=== PATIENT | male | born 1955 | race Caucasian/White ===

== ENCOUNTER 2016-03-11 08:00 | Outpatient (CLI) | payer MEDICAID | END 2016-03-11 08:01 | disposition home or self-care (01) | DX: I48.91 Unspecified atrial fibrillation (principal) ==

== ENCOUNTER 2016-04-02 20:07 | Outpatient (CLI) | payer MEDICAID | END 2016-04-02 20:08 | disposition home or self-care (01) | DX: I48.91 Unspecified atrial fibrillation (principal) ==

== ENCOUNTER 2016-04-23 14:25 | Outpatient (CLI) | payer MEDICAID | END 2016-04-23 14:26 | disposition home or self-care (01) | DX: I48.91 Unspecified atrial fibrillation (principal) ==

== ENCOUNTER 2016-05-06 17:03 | Outpatient (CLI) | payer MEDICAID | END 2016-05-06 17:04 | disposition home or self-care (01) | DX: I48.91 Unspecified atrial fibrillation (principal) ==

== ENCOUNTER 2016-05-26 11:19 | Outpatient (CLI) | payer MEDICAID | END 2016-05-26 11:20 | disposition home or self-care (01) | DX: I48.91 Unspecified atrial fibrillation (principal) ==

== ENCOUNTER 2016-06-19 13:57 | Outpatient (CLI) | payer MEDICAID | END 2016-06-19 23:59 | DX: I48.91 Unspecified atrial fibrillation (principal) ==

== ENCOUNTER 2016-07-01 16:12 | Outpatient (CLI) | payer MEDICAID | END 2016-07-01 16:13 | disposition EMS.NT | DX: Z03.89 Encounter for observation for other suspected diseases and conditions ruled out (principal); W18.30XA Fall on same level, unspecified, initial encounter; Y92.008 Other place in unspecified non-institutional (private) residence as the place of occurrence of the external cause ==

== ENCOUNTER 2016-07-15 11:30 | Outpatient (CLI) | payer MEDICAID | END 2016-07-15 23:59 | disposition home or self-care (01) | DX: I48.91 Unspecified atrial fibrillation (principal) ==

== ENCOUNTER 2016-08-01 13:04 | Outpatient (CLI) | payer MEDICAID ==
[2016-08-01 18:59] LABS: BASOPHILS % (AUTO) 0.4 %; EOSINOPHILS # (AUTO) 0.1 10^3/uL (0.0-0.7); EOSINOPHILS % (AUTO) 0.7 %; HCT - HEMATOCRIT 42.4 % (42.0-52.0); HGB - HEMOGLOBIN 13.8 g/dL (14.0-18.0); LYMPHOCYTES # (AUTO) 1.4 10^3/uL (1.5-3.5); LYMPHOCYTES % (AUTO) 18.3 %; MEAN CORPUSCULAR HEMOGLOBIN 28.4 pg (27.0-31.0); MEAN CORPUSCULAR HGB CONC 32.6 g/dL (32.0-36.0); MEAN CORPUSCULAR VOLUME 86.9 fL (80.0-94.0); MEAN PLATELET VOLUME 8.8 fL (7.4-11.4); MONOCYTES # (AUTO) 0.7 10^3/uL (0.0-1.0); MONOCYTES % (AUTO) 9.2 %; NEUTROPHILS # (AUTO) 5.4 10^3/uL (1.5-6.6); NEUTROPHILS % (AUTO) 71.4 %; NUCLEATED RED BLOOD CELLS AUTO 0.1 /100WBC; RED BLOOD COUNT 4.87 10^6/uL (4.70-6.10); RED CELL DISTRIBUTION WIDTH 15.7 % (12.0-15.0); UNCORRECTED WHITE BLOOD COUNT 7.5 x10^3/uL; WHITE BLOOD COUNT 7.5 x10^3/uL (4.8-10.8)
[2016-08-01 19:52] LABS: ALBUMIN/GLOBULIN RATIO 1.3 (1.0-2.2); BILIRUBIN,TOTAL 0.5 mg/dL (0.2-1.0); BUN - BLOOD UREA NITROGEN 14 mg/dL (6-20); CALCIUM 8.6 mg/dL (8.5-10.3); CARBON DIOXIDE - CO2 21 mmol/L (21-32); CHLORIDE 102 mmol/L (101-111); CHOL/HDL RATIO 2.5 (<5.0); CHOLESTEROL 129 mg/dL; CREATININE 1.1 mg/dL (0.6-1.2); GFR - MDRD 69 (>89); GLUCOSE 250 mg/dL (70-100); HDL CHOLESTEROL 51 mg/dL; POTASSIUM 4.3 mmol/L (3.5-5.0); SODIUM 134 mmol/L (135-145); TOTAL PROTEIN 6.9 g/dL (6.7-8.2); TRIGLYCERIDES 136 mg/dL; VLDL CHOLESTEROL 27 mg/dL
[2016-08-01 20:31] LABS: HEMOGLOBIN A1C 0.91 g/dL
== END 2016-08-01 13:05 | disposition home or self-care (01) ==
LOC: LAB.N 13:04
PROVIDERS: ATTEND Nurse Practitioner Gerontology
DX: E11.9 Type 2 diabetes mellitus without complications (principal); I48.91 Unspecified atrial fibrillation
CPT/HCPCS: 36415; 80053; 80061; 82043; 83036; 85025; 85610

== ENCOUNTER 2016-09-04 08:00 | Outpatient (CLI) | payer MEDICAID | END 2016-09-04 08:01 | LOC: LAB.N 08:00 | PROVIDERS: ATTEND Nurse Practitioner Gerontology | DX: I48.91 Unspecified atrial fibrillation (principal) | CPT/HCPCS: 85610 ==

== ENCOUNTER 2016-09-10 14:07 | Outpatient (CLI) | payer MEDICAID | END 2016-09-10 14:08 | LOC: LAB.N 14:07 | PROVIDERS: ATTEND Nurse Practitioner Gerontology | DX: I48.91 Unspecified atrial fibrillation (principal) | CPT/HCPCS: 85610 ==

== ENCOUNTER 2016-09-16 13:35 | Outpatient (CLI) | payer MEDICAID | END 2016-09-16 23:59 | disposition home or self-care (01) | LOC: LAB.N 13:35 | PROVIDERS: ATTEND Nurse Practitioner Gerontology | DX: I48.91 Unspecified atrial fibrillation (principal) | CPT/HCPCS: 85610 ==

== ENCOUNTER 2016-09-24 15:04 | Outpatient (CLI) | payer MEDICAID | END 2016-09-24 15:05 | disposition home or self-care (01) | LOC: LAB.N 15:04 | PROVIDERS: ATTEND Nurse Practitioner Gerontology | DX: I48.91 Unspecified atrial fibrillation (principal) | CPT/HCPCS: 85610 ==

== ENCOUNTER 2016-10-03 14:11 | Outpatient (CLI) | payer MEDICAID | END 2016-10-03 14:12 | disposition home or self-care (01) | LOC: LAB.N 14:11 | PROVIDERS: ATTEND Nurse Practitioner Gerontology | DX: I48.91 Unspecified atrial fibrillation (principal) | CPT/HCPCS: 85610 ==

== ENCOUNTER 2016-10-13 13:23 | Outpatient (CLI) | payer MEDICAID | END 2016-10-13 13:24 | disposition home or self-care (01) | LOC: LAB.N 13:23 | PROVIDERS: ATTEND Nurse Practitioner Gerontology | DX: I48.91 Unspecified atrial fibrillation (principal) | CPT/HCPCS: 85610 ==

== ENCOUNTER 2016-10-29 14:00 | Outpatient (CLI) | payer MEDICAID | END 2016-10-29 14:01 | disposition home or self-care (01) | LOC: LAB.N 14:00 | PROVIDERS: ATTEND Nurse Practitioner Gerontology | DX: I48.91 Unspecified atrial fibrillation (principal) | CPT/HCPCS: 85610 ==

== ENCOUNTER 2016-12-04 13:12 | Outpatient (CLI) | payer MEDICAID | END 2016-12-04 13:13 | disposition home or self-care (01) | LOC: LAB.N 13:12 | PROVIDERS: ATTEND Nurse Practitioner Gerontology | DX: I48.91 Unspecified atrial fibrillation (principal) ==

== ENCOUNTER 2016-12-24 03:47 | Emergency (ER) | payer MEDICAID ==
[2016-12-24 04:29] VITALS: BP 119/73
--- NOTE | 2016-12-24 04:30 | ED Physician Documentation ---
PD HPI HEENT - Stated complaint Stated Complaint: BLEEDING POST TOOTH EXTRACTION - Chief complaint Chief Complaint: Heent - History obtained from History obtained from: Patient - History of Present Illness Timing - onset: How many days ago (8) Timing - details: Gradual onset, Still present Location: Mouth Similar symptoms before: Has not had sx before Recently seen: Clinic, Surgery - Additional information Additional information: Patient is a 61 year old male on coumadin for A fib who is presenting for oral bleeding after having a tooth extraction yesterday. Patient states that the bleeding stopped for a while, but it then started up again tonight. Patient states that it has been persistent since this afternoon. Patient denies any dizziness or syncope. Review of Systems Constitutional: denies: Fever, Chills Eyes: denies: Decreased vision, Photophobia Ears: denies: Ear pain, Drainage/discharge Nose: denies: Congestion, Epistaxis Throat: reports: Dental pain / toothache, Oral lesions / sores Cardiac: reports: Reviewed and negative Respiratory: denies: Cough GI: denies: Nausea, Vomiting : reports: Reviewed and negative Skin: reports: Reviewed and negative Musculoskeletal: reports: Reviewed and negative Neurologic: denies: Near syncope, Syncope Immunocompromised: denies: Immunocompromised PD PAST MEDICAL HISTORY - Past Medical History Past Medical History: Yes Cardiovascular: Hypertension, Atrial fibrillation Respiratory: Sleep apnea Neuro: None Endocrine/Autoimmune: Type 2 diabetes GI: Hiatal hernia : None HEENT: Chronic vision loss Psych: Depression Musculoskeletal: Chronic back pain Derm: Other drug resistant infections - Past Surgical History Past Surgical History: Yes General: Gastric surgery, Colonoscopy Ortho: Amputation, Other HEENT: Tonsil/Adenoidectomy, Other - Present Medications Home Medications: Ambulatory Orders Medication Instructions Recorded Confirmed Gabapentin [Neurontin] 300 mg PO TID 09/16/13 12/24/16 Hydrochlorothiazide 25 mg PO DAILY 09/16/13 12/24/16 Warfarin Sodium [Coumadin] 7.5 mg PO DAILY 09/16/13 12/24/16 metFORMIN [Glucophage] 500 mg PO BID 09/16/13 12/24/16 Bupropion HCl [Wellbutrin Xl] 300 mg PO DAILY 01/05/14 12/24/16 Cholecalciferol (Vitamin D3) 4,000 unit PO DAILY 01/05/14 12/24/16 [Vitamin D-3] Escitalopram Oxalate [Lexapro] 20 mg PO DAILY 01/05/14 12/24/16 Fluticasone [Flonase] 1 sprays TO BID PRN 01/05/14 12/24/16 Zolpidem [Ambien] 10 mg PO HS 01/05/14 12/24/16 - Allergies Allergies/Adverse Reactions: Allergies Allergy/AdvReac Type Severity Reaction Status Date / Time vancomycin Allergy Rash Verified 12/24/16 04:01 - Social History Does the pt smoke?: No Smoking Status: Never smoker Does the pt drink ETOH?: No Does the pt have substance abuse?: No - Immunizations Immunizations are current?: No Immunizations: TDAP >10years/unknown - POLST Patient has POLST: No PD ED PE NORMAL - Vitals Vital signs reviewed: Yes - General General: Alert and oriented X 3, No acute distress - HEENT HEENT: Atraumatic, PERRL - Neck Neck: Supple, no meningeal sign - Cardiac Cardiac: RRR, No murmur - Respiratory Respiratory: No respiratory distress - Derm Derm: Normal color, Warm and dry, No rash - Extremities Extremities: No deformity, Normal ROM s pain, No edema - Neuro Neuro: Alert and oriented X 3, No motor deficit, No sensory deficit - Psych Psych: Normal mood PD ED PE EXPANDED - HEENT HEENT: Other (bleeding ) Results - Vitals Vitals: Vital Signs - 24 hr 12/24/16 12/24/16 03:55 04:28 Temperature 36 C L Heart Rate 78 80 Respiratory 17 18 Rate Blood Pressure 149/118 H 119/73 O2 Saturation 99 97 Oxygen O2 Source [With Activity] Room air O2 Source [Without Activity] Room air O2 Source Room air PD MEDICAL DECISION MAKING - ED course Complexity details: reviewed old records, reviewed results, re-evaluated patient , considered differential, d/w patient ED course: Patient was seen and examined at bedside. Patient had an oozing wound. the wound was packed with surgicel and patient was given pressure gauze. the bleeding stopped to a trickle and patient was given more supplies for home. patient required no further work up and was stable for discharge with outpatient follow up. Departure - Departure Disposition: Home, Self Care Clinical Impression: Surgical wound hemorrhage after dental procedure Condition: Good Instructions: Coumadin Follow-Up: Karie Brody ARNP [Primary Care Provider] - Comments: Your symptoms today are secondary to your coumadin usage. You should apply the coagulation pads in the socket if it continues to bleed and apply pressure. if the bleeding continues for more than a day you should follow up with your dentist. You should return to the emergency department for dizziness, passing out, new worsening or uncontrollable symptoms.
== END 2016-12-24 04:36 | disposition home or self-care (01) ==
LOC: ED 03:47
DX: L76.22 Postprocedural hemorrhage of skin and subcutaneous tissue following other procedure (principal); K08.409 Partial loss of teeth, unspecified cause, unspecified class; I48.91 Unspecified atrial fibrillation; Z79.01 Long term (current) use of anticoagulants; I10 Essential (primary) hypertension; Z79.84 Long term (current) use of oral hypoglycemic drugs; Z98.84 Bariatric surgery status
CPT/HCPCS: 99282; 99283

== ENCOUNTER 2017-02-02 08:00 | Outpatient (CLI) | payer MEDICAID | END 2017-02-02 08:01 | disposition home or self-care (01) | LOC: LAB.N 08:00 | PROVIDERS: ATTEND Nurse Practitioner Gerontology | DX: I48.91 Unspecified atrial fibrillation (principal) | CPT/HCPCS: 85610 ==

== ENCOUNTER 2017-03-06 14:36 | Outpatient (CLI) | payer MEDICAID | END 2017-03-06 14:37 | disposition home or self-care (01) | LOC: LAB.N 14:36 | PROVIDERS: ATTEND Nurse Practitioner Gerontology | DX: I48.91 Unspecified atrial fibrillation (principal) | CPT/HCPCS: 85610 ==

== ENCOUNTER 2017-04-09 08:00 | Outpatient (CLI) | payer MEDICAID | END 2017-04-09 08:01 | disposition home or self-care (01) | LOC: LAB.N 08:00 | PROVIDERS: ATTEND Nurse Practitioner Gerontology | DX: I48.91 Unspecified atrial fibrillation (principal) | CPT/HCPCS: 85610 ==

== ENCOUNTER 2017-04-22 13:23 | Outpatient (CLI) | payer MEDICAID | END 2017-04-22 13:24 | disposition home or self-care (01) | LOC: LAB.N 13:23 | PROVIDERS: ATTEND Nurse Practitioner Gerontology | DX: I48.91 Unspecified atrial fibrillation (principal) | CPT/HCPCS: 85610 ==

== ENCOUNTER 2017-04-27 02:26 | Outpatient (CLI) | payer MEDICAID | END 2017-04-27 02:27 | disposition home or self-care (01) | LOC: LAB.N 02:26 | PROVIDERS: ATTEND Nurse Practitioner Gerontology | DX: I48.91 Unspecified atrial fibrillation (principal) | CPT/HCPCS: 85610 ==

== ENCOUNTER 2017-05-04 14:40 | Outpatient (CLI) | payer MEDICAID | END 2017-05-04 14:41 | disposition home or self-care (01) | LOC: LAB.N 14:40 | PROVIDERS: ATTEND Nurse Practitioner Gerontology | DX: I48.91 Unspecified atrial fibrillation (principal) | CPT/HCPCS: 85610 ==

== ENCOUNTER 2017-06-01 23:38 | Outpatient (CLI) | payer MEDICAID | END 2017-06-01 23:39 | disposition home or self-care (01) | LOC: LAB.N 23:38 | PROVIDERS: ATTEND Nurse Practitioner Gerontology | DX: I48.91 Unspecified atrial fibrillation (principal) | CPT/HCPCS: 85610 ==

== ENCOUNTER 2017-06-08 08:00 | Outpatient (CLI) | payer MEDICAID | END 2017-06-08 08:01 | disposition home or self-care (01) | LOC: LAB.N 08:00 | PROVIDERS: ATTEND Nurse Practitioner Gerontology | DX: I48.91 Unspecified atrial fibrillation (principal) | CPT/HCPCS: 85610 ==

== ENCOUNTER 2017-06-26 13:29 | Outpatient (CLI) | payer MEDICAID | END 2017-06-26 13:30 | disposition home or self-care (01) | LOC: LAB.N 13:29 | PROVIDERS: ATTEND Nurse Practitioner Gerontology | DX: I48.91 Unspecified atrial fibrillation (principal) | CPT/HCPCS: 85610 ==

== ENCOUNTER 2017-07-09 10:16 | Outpatient (CLI) | payer MEDICAID ==
[2017-07-09 13:01] LABS: BASOPHILS % (AUTO) 0.5 %; EOSINOPHILS # (AUTO) 0.2 10^3/uL (0.0-0.7); EOSINOPHILS % (AUTO) 2.3 %; HGB - HEMOGLOBIN 13.3 g/dL (14.0-18.0); LYMPHOCYTES # (AUTO) 1.9 10^3/uL (1.5-3.5); LYMPHOCYTES % (AUTO) 19.3 %; MEAN CORPUSCULAR HEMOGLOBIN 27.1 pg (27.0-31.0); MEAN CORPUSCULAR HGB CONC 32.5 g/dL (32.0-36.0); MEAN CORPUSCULAR VOLUME 83.4 fL (80.0-94.0); MEAN PLATELET VOLUME 8.7 fL (7.4-11.4); MONOCYTES # (AUTO) 0.7 10^3/uL (0.0-1.0); MONOCYTES % (AUTO) 7.3 %; NEUTROPHILS # (AUTO) 6.8 10^3/uL (1.5-6.6); NEUTROPHILS % (AUTO) 70.6 %; PLT - PLATELET COUNT 221 10^3/uL (130-450); RED BLOOD COUNT 4.91 10^6/uL (4.70-6.10); RED CELL DISTRIBUTION WIDTH 15.2 % (12.0-15.0); WHITE BLOOD COUNT 9.6 x10^3/uL (4.8-10.8)
[2017-07-09 13:32] LABS: ALBUMIN 3.6 g/dL (3.2-5.5); ALBUMIN/GLOBULIN RATIO 1.1 (1.0-2.2); ALKALINE PHOSPHATASE 58 IU/L (42-121); ALT ALANINE AMINOTRANSFERASE 25 IU/L (10-60); AST ASPARTATE AMINOTRANSFERASE 33 IU/L (10-42); BILIRUBIN,TOTAL 0.8 mg/dL (0.2-1.0); BUN - BLOOD UREA NITROGEN 16 mg/dL (6-20); CALCIUM 8.6 mg/dL (8.5-10.3); CARBON DIOXIDE - CO2 21 mmol/L (21-32); CHLORIDE 100 mmol/L (101-111); CHOL/HDL RATIO 2.5 (<5.0); CHOLESTEROL 141 mg/dL; GFR - MDRD 76 (>89); GLUCOSE 219 mg/dL (70-100); HDL CHOLESTEROL 56 mg/dL; LDL CHOLESTEROL,CALCULATED 57 mg/dL; SODIUM 134 mmol/L (135-145); TOTAL PROTEIN 6.8 g/dL (6.7-8.2); VLDL CHOLESTEROL 28 mg/dL
== END 2017-07-09 10:17 | disposition home or self-care (01) ==
LOC: LAB.N 10:16
PROVIDERS: ATTEND Nurse Practitioner Gerontology
DX: Z13.9 Encounter for screening, unspecified (principal); I48.91 Unspecified atrial fibrillation
CPT/HCPCS: 36415; 80050; 80061; 83721; 85610

== ENCOUNTER 2017-07-23 08:00 | Outpatient (CLI) | payer MEDICAID | END 2017-07-23 08:01 | disposition home or self-care (01) | LOC: LAB.N 08:00 | PROVIDERS: ATTEND Nurse Practitioner Gerontology | DX: I48.91 Unspecified atrial fibrillation (principal) | CPT/HCPCS: 85610 ==

== ENCOUNTER 2017-07-31 13:03 | Outpatient (CLI) | payer MEDICAID | END 2017-07-31 13:04 | disposition home or self-care (01) | LOC: LAB.N 13:03 | PROVIDERS: ATTEND Nurse Practitioner Gerontology | DX: I48.91 Unspecified atrial fibrillation (principal) | CPT/HCPCS: 85610 ==

== ENCOUNTER 2017-08-18 11:24 | Outpatient (CLI) | payer MEDICAID | END 2017-08-18 11:25 | disposition home or self-care (01) | LOC: LAB.N 11:24 | PROVIDERS: ATTEND Nurse Practitioner Gerontology | DX: I48.91 Unspecified atrial fibrillation (principal) | CPT/HCPCS: 85610 ==

== ENCOUNTER 2017-08-27 13:11 | Outpatient (CLI) | payer MEDICAID | END 2017-08-27 13:12 | disposition home or self-care (01) | LOC: LAB.N 13:11 | PROVIDERS: ATTEND Nurse Practitioner Gerontology | DX: I48.91 Unspecified atrial fibrillation (principal) | CPT/HCPCS: 85610 ==

== ENCOUNTER 2017-09-09 13:45 | Outpatient (CLI) | payer MEDICAID | END 2017-09-09 13:46 | disposition home or self-care (01) | LOC: LAB.N 13:45 | PROVIDERS: ATTEND Nurse Practitioner Gerontology | DX: I48.91 Unspecified atrial fibrillation (principal) | CPT/HCPCS: 85610 ==

== ENCOUNTER 2017-09-23 20:23 | Outpatient (CLI) | payer MEDICAID | END 2017-09-23 20:24 | disposition home or self-care (01) | LOC: LAB.N 20:23 | PROVIDERS: ATTEND Nurse Practitioner Gerontology | DX: I48.91 Unspecified atrial fibrillation (principal) | CPT/HCPCS: 85610 ==

== ENCOUNTER 2017-10-27 10:35 | Outpatient (CLI) | payer MEDICAID ==
[2017-10-27 12:54] LABS: HB2 TOTAL 15.4 g/dL; HEMOGLOBIN A1C 1.14 g/dL; HEMOGLOBIN A1C % 8.9 % (4.6-6.2)
[2017-10-27 12:55] LABS: CALCIUM 8.7 mg/dL (8.5-10.3); CREATININE 1.1 mg/dL (0.6-1.2)
== END 2017-10-27 10:36 | disposition home or self-care (01) ==
LOC: LAB.N 10:35
PROVIDERS: ATTEND Nurse Practitioner Gerontology
DX: I48.91 Unspecified atrial fibrillation (principal); E11.65 Type 2 diabetes mellitus with hyperglycemia; Z79.4 Long term (current) use of insulin
CPT/HCPCS: 36415; 80048; 83036; 85610

== ENCOUNTER 2017-11-27 13:30 | Outpatient (CLI) | payer MEDICAID | END 2017-11-27 13:31 | disposition home or self-care (01) | LOC: LAB.N 13:30 | PROVIDERS: ATTEND Nurse Practitioner Gerontology | DX: I48.91 Unspecified atrial fibrillation (principal) | CPT/HCPCS: 85610 ==

== ENCOUNTER 2017-12-07 13:13 | Outpatient (CLI) | payer MEDICAID | END 2017-12-07 13:14 | disposition home or self-care (01) | LOC: LAB.N 13:13 | PROVIDERS: ATTEND Nurse Practitioner Gerontology | DX: I48.91 Unspecified atrial fibrillation (principal) | CPT/HCPCS: 85610 ==

== ENCOUNTER 2017-12-15 11:54 | Outpatient (CLI) | payer MEDICAID | END 2017-12-15 11:55 | disposition home or self-care (01) | LOC: LAB.N 11:54 | PROVIDERS: ATTEND Nurse Practitioner Gerontology | DX: I48.91 Unspecified atrial fibrillation (principal) | CPT/HCPCS: 85610 ==

== ENCOUNTER 2017-12-22 13:09 | Outpatient (CLI) | payer MEDICAID | END 2017-12-22 13:10 | disposition home or self-care (01) | LOC: LAB.N 13:09 | PROVIDERS: ATTEND Nurse Practitioner Gerontology | DX: I48.91 Unspecified atrial fibrillation (principal) | CPT/HCPCS: 85610 ==

== ENCOUNTER 2017-12-31 13:15 | Outpatient (CLI) | payer MEDICAID | END 2017-12-31 13:16 | disposition home or self-care (01) | LOC: LAB.N 13:15 | PROVIDERS: ATTEND Nurse Practitioner Gerontology | DX: I48.91 Unspecified atrial fibrillation (principal) | CPT/HCPCS: 85610 ==

== ENCOUNTER → 2018-01-11 | Outpatient (CLI) | payer MEDICAID ==
[2018-01-11 18:56] LABS: INR 2.1 (0.8-1.2)
== END ==
LOC: LAB.N 14:04
PROVIDERS: ATTEND Nurse Practitioner Gerontology
DX: I48.91 Unspecified atrial fibrillation (principal)
CPT/HCPCS: 36415; 85610

== ENCOUNTER 2018-01-27 08:00 | Outpatient (CLI) | payer MEDICAID | END 2018-01-27 08:01 | disposition home or self-care (01) | LOC: LAB.N 08:00 | PROVIDERS: ATTEND Nurse Practitioner Gerontology | DX: I48.91 Unspecified atrial fibrillation (principal) | CPT/HCPCS: 85610 ==

== ENCOUNTER 2018-02-01 13:24 | Outpatient (CLI) | payer MEDICAID ==
[2018-02-01 19:42] LABS: CALCIUM 8.4 mg/dL (8.5-10.3); CREATININE 1.1 mg/dL (0.6-1.2)
[2018-02-01 20:49] LABS: HB2 TOTAL 15.2 g/dL; HEMOGLOBIN A1C 1.04 g/dL; HEMOGLOBIN A1C % 8.4 % (4.6-6.2)
== END 2018-02-01 23:59 | disposition home or self-care (01) ==
LOC: LAB.N 13:24
PROVIDERS: ATTEND Nurse Practitioner Gerontology
DX: E11.65 Type 2 diabetes mellitus with hyperglycemia (principal); Z79.4 Long term (current) use of insulin; I48.91 Unspecified atrial fibrillation
CPT/HCPCS: 36415; 80048; 83036; 85610

== ENCOUNTER 2018-02-26 13:01 | Outpatient (CLI) | payer MEDICAID | END 2018-02-26 23:59 | disposition home or self-care (01) | LOC: LAB.N 13:01 | PROVIDERS: ATTEND Nurse Practitioner Gerontology | DX: I48.91 Unspecified atrial fibrillation (principal) | CPT/HCPCS: 85610 ==

== ENCOUNTER 2018-03-31 08:00 | Outpatient (CLI) | payer MEDICAID | END 2018-03-31 23:59 | disposition home or self-care (01) | LOC: LAB.N 08:00 | PROVIDERS: ATTEND Nurse Practitioner Gerontology | DX: I48.91 Unspecified atrial fibrillation (principal) | CPT/HCPCS: 85610 ==

== ENCOUNTER 2018-04-19 08:00 | Outpatient (CLI) | payer MEDICAID | END 2018-04-19 23:59 | disposition home or self-care (01) | LOC: LAB.N 08:00 | PROVIDERS: ATTEND Nurse Practitioner Gerontology | DX: I48.91 Unspecified atrial fibrillation (principal) | CPT/HCPCS: 85610 ==

== ENCOUNTER 2018-05-03 12:55 | Outpatient (CLI) | payer MEDICAID ==
[2018-05-03 22:16] LABS: HEMOGLOBIN A1C 1.02 g/dL; HEMOGLOBIN A1C % 8.4 % (4.6-6.2)
== END 2018-05-03 23:59 | disposition home or self-care (01) ==
LOC: LAB.N 12:55
PROVIDERS: ATTEND Nurse Practitioner Gerontology
DX: E11.9 Type 2 diabetes mellitus without complications (principal)
CPT/HCPCS: 36415; 83036

== ENCOUNTER 2018-05-20 12:01 | Outpatient (CLI) | payer MEDICAID | END 2018-05-20 23:59 | disposition home or self-care (01) | LOC: LAB.N 12:01 | PROVIDERS: ATTEND Nurse Practitioner Gerontology | DX: I48.91 Unspecified atrial fibrillation (principal) | CPT/HCPCS: 85610 ==

== ENCOUNTER 2018-06-17 10:59 | Outpatient (CLI) | payer MEDICAID | END 2018-06-17 23:59 | disposition home or self-care (01) | LOC: LAB.N 10:59 | PROVIDERS: ATTEND Nurse Practitioner Gerontology | DX: I48.91 Unspecified atrial fibrillation (principal) | CPT/HCPCS: 85610 ==

== ENCOUNTER 2018-07-28 08:00 | Outpatient (CLI) | payer MEDICAID | END 2018-07-28 23:59 | disposition home or self-care (01) | LOC: LAB.N 08:00 | PROVIDERS: ATTEND Nurse Practitioner Gerontology | DX: I48.91 Unspecified atrial fibrillation (principal) | CPT/HCPCS: 85610 ==

== ENCOUNTER 2018-09-14 08:00 | Outpatient (CLI) | payer MEDICAID | END 2018-09-14 23:59 | disposition home or self-care (01) | LOC: LAB.N 08:00 | PROVIDERS: ATTEND Nurse Practitioner Gerontology | DX: I48.91 Unspecified atrial fibrillation (principal) | CPT/HCPCS: 85610 ==

== ENCOUNTER 2018-10-26 13:01 | Outpatient (CLI) | payer MEDICAID | END 2018-10-26 23:59 | disposition home or self-care (01) | LOC: LAB.N 13:01 | PROVIDERS: ATTEND Nurse Practitioner Gerontology | DX: I48.91 Unspecified atrial fibrillation (principal) | CPT/HCPCS: 85610 ==

== ENCOUNTER 2018-11-26 13:35 | Outpatient (CLI) | payer MEDICAID ==
[2018-11-26 19:37] LABS: HB2 TOTAL 13.5 g/dL; HEMOGLOBIN A1C 1.08 g/dL; HEMOGLOBIN A1C % 9.5 % (4.6-6.2)
== END 2018-11-26 23:59 | disposition home or self-care (01) ==
LOC: LAB.N 13:35
PROVIDERS: ATTEND Nurse Practitioner Gerontology
DX: I48.91 Unspecified atrial fibrillation (principal); E11.9 Type 2 diabetes mellitus without complications
CPT/HCPCS: 36415; 83036; 85610

== ENCOUNTER 2018-12-28 08:00 | Outpatient (CLI) | payer MEDICAID | END 2018-12-28 08:01 | disposition home or self-care (01) | LOC: LAB.N 08:00 | PROVIDERS: ATTEND Nurse Practitioner Gerontology | DX: I48.91 Unspecified atrial fibrillation (principal) | CPT/HCPCS: 85610 ==

== ENCOUNTER 2019-02-08 13:44 | Outpatient (CLI) | payer MEDICAID | END 2019-02-08 23:59 | disposition home or self-care (01) | LOC: LAB.N 13:44 | PROVIDERS: ATTEND Nurse Practitioner Gerontology | DX: I48.91 Unspecified atrial fibrillation (principal) | CPT/HCPCS: 85610 ==

== ENCOUNTER 2019-03-25 13:40 | Outpatient (CLI) | payer MEDICAID ==
[2019-03-25 19:56] LABS: HB2 TOTAL 14.3 g/dL; HEMOGLOBIN A1C 1.03 g/dL; HEMOGLOBIN A1C % 8.7 % (4.6-6.2)
== END 2019-03-25 23:59 | disposition home or self-care (01) ==
LOC: LAB.N 13:40
PROVIDERS: ATTEND Nurse Practitioner Gerontology
DX: E11.65 Type 2 diabetes mellitus with hyperglycemia (principal); Z79.4 Long term (current) use of insulin; I48.91 Unspecified atrial fibrillation
CPT/HCPCS: 36415; 83036; 85610

== ENCOUNTER 2019-04-20 09:53 | Outpatient (CLI) | payer MEDICAID ==
[2019-04-20 12:21] LABS: BASOPHILS % (AUTO) 0.4 %; EOSINOPHILS # (AUTO) 0.1 10^3/uL (0.0-0.7); EOSINOPHILS % (AUTO) 1.9 %; HGB - HEMOGLOBIN 14.3 g/dL (14.0-18.0); LYMPHOCYTES # (AUTO) 1.6 10^3/uL (1.5-3.5); LYMPHOCYTES % (AUTO) 22.1 %; MEAN CORPUSCULAR HEMOGLOBIN 27.3 pg (27.0-31.0); MEAN CORPUSCULAR VOLUME 85.3 fL (80.0-94.0); MEAN PLATELET VOLUME 10.9 fL (7.4-11.4); MONOCYTES # (AUTO) 0.5 10^3/uL (0.0-1.0); MONOCYTES % (AUTO) 6.8 %; NEUTROPHILS % (AUTO) 68.1 %; PLT - PLATELET COUNT 246 10^3/uL (130-450); RED BLOOD COUNT 5.24 10^6/uL (4.70-6.10); RED CELL DISTRIBUTION WIDTH 14.3 % (12.0-15.0); WHITE BLOOD COUNT 7.4 x10^3/uL (4.8-10.8)
[2019-04-20 12:49] LABS: ALBUMIN 4.1 g/dL (3.2-5.5); ALBUMIN/GLOBULIN RATIO 1.3 (1.0-2.2); ALKALINE PHOSPHATASE 60 IU/L (42-121); ALT ALANINE AMINOTRANSFERASE 21 IU/L (10-60); AST ASPARTATE AMINOTRANSFERASE 26 IU/L (10-42); BILIRUBIN,TOTAL 0.6 mg/dL (0.2-1.0); BUN - BLOOD UREA NITROGEN 14 mg/dL (6-20); CALCIUM 8.9 mg/dL (8.5-10.3); CARBON DIOXIDE - CO2 24 mmol/L (21-32); CHLORIDE 103 mmol/L (101-111); CHOL/HDL RATIO 2.6 (<5.0); CHOLESTEROL 149 mg/dL; CREATININE 0.9 mg/dL (0.6-1.2); GFR - MDRD 86 (>89); GLUCOSE 165 mg/dL (70-100); HDL CHOLESTEROL 58 mg/dL; LDL CHOLESTEROL,CALCULATED 67 mg/dL; LDL/HDL RATIO 1.2 (<3.6); SODIUM 138 mmol/L (135-145); TOTAL PROTEIN 7.2 g/dL (6.7-8.2); VLDL CHOLESTEROL 24 mg/dL
[2019-04-20 12:54] LABS: HB2 TOTAL 14.9 g/dL; HEMOGLOBIN A1C 0.98 g/dL; HEMOGLOBIN A1C % 8.2 % (4.6-6.2)
== END 2019-04-20 23:59 | disposition home or self-care (01) ==
LOC: LAB.N 09:53
PROVIDERS: ATTEND Nurse Practitioner Gerontology
DX: Z00.00 Encounter for general adult medical examination without abnormal findings (principal); I48.91 Unspecified atrial fibrillation; I10 Essential (primary) hypertension; E78.5 Hyperlipidemia, unspecified; E11.8 Type 2 diabetes mellitus with unspecified complications
CPT/HCPCS: 36415; 80050; 80061; 83036; 83721; 85610

== ENCOUNTER 2019-04-25 11:06 | Outpatient (CLI) | payer MEDICAID | END 2019-04-25 23:59 | disposition home or self-care (01) | LOC: LAB.N 11:06 | PROVIDERS: ATTEND Nurse Practitioner Gerontology | DX: I48.91 Unspecified atrial fibrillation (principal) | CPT/HCPCS: 85610 ==

== ENCOUNTER 2019-07-18 08:00 | Outpatient (CLI) | payer MEDICAID ==
[2019-07-18 14:15] LABS: BASOPHILS % (AUTO) 0.4 %; EOSINOPHILS # (AUTO) 0.1 10^3/uL (0.0-0.7); EOSINOPHILS % (AUTO) 1.4 %; HGB - HEMOGLOBIN 14.1 g/dL (14.0-18.0); LYMPHOCYTES # (AUTO) 1.8 10^3/uL (1.5-3.5); LYMPHOCYTES % (AUTO) 21.6 %; MEAN CORPUSCULAR HEMOGLOBIN 26.6 pg (27.0-31.0); MEAN CORPUSCULAR HGB CONC 31.6 g/dL (32.0-36.0); MEAN CORPUSCULAR VOLUME 84.2 fL (80.0-94.0); MEAN PLATELET VOLUME 10.5 fL (7.4-11.4); MONOCYTES # (AUTO) 0.7 10^3/uL (0.0-1.0); MONOCYTES % (AUTO) 7.8 %; NEUTROPHILS # (AUTO) 5.7 10^3/uL (1.5-6.6); NEUTROPHILS % (AUTO) 68.2 %; PLT - PLATELET COUNT 229 10^3/uL (130-450); RED CELL DISTRIBUTION WIDTH 14.5 % (12.0-15.0); WHITE BLOOD COUNT 8.4 x10^3/uL (4.8-10.8)
[2019-07-18 14:53] LABS: ALBUMIN 3.8 g/dL (3.2-5.5); ALBUMIN/GLOBULIN RATIO 1.3 (1.0-2.2); ALKALINE PHOSPHATASE 70 IU/L (42-121); ALT ALANINE AMINOTRANSFERASE 18 IU/L (10-60); AST ASPARTATE AMINOTRANSFERASE 20 IU/L (10-42); BILIRUBIN,TOTAL 0.8 mg/dL (0.2-1.0); BUN - BLOOD UREA NITROGEN 18 mg/dL (6-20); CALCIUM 8.9 mg/dL (8.5-10.3); CARBON DIOXIDE - CO2 21 mmol/L (21-32); CHLORIDE 104 mmol/L (101-111); CHOL/HDL RATIO 2.6 (<5.0); CHOLESTEROL 154 mg/dL; GLUCOSE 184 mg/dL (70-100); HDL CHOLESTEROL 59 mg/dL; LDL CHOLESTEROL,CALCULATED 76 mg/dL; LDL/HDL RATIO 1.3 (<3.6); SODIUM 135 mmol/L (135-145); TOTAL PROTEIN 6.8 g/dL (6.7-8.2); VLDL CHOLESTEROL 19 mg/dL
[2019-07-18 15:09] LABS: HEMOGLOBIN A1C 1.03 g/dL; HEMOGLOBIN A1C % 8.4 % (4.6-6.2)
== END 2019-07-18 23:59 | disposition home or self-care (01) ==
LOC: LAB.WCP 08:00
PROVIDERS: ATTEND Nurse Practitioner Family
DX: E11.65 Type 2 diabetes mellitus with hyperglycemia (principal); Z79.4 Long term (current) use of insulin; I10 Essential (primary) hypertension; E78.5 Hyperlipidemia, unspecified
CPT/HCPCS: 36415; 80050; 80061; 83036; 83721

== ENCOUNTER 2020-08-27 18:24 | Outpatient (CLI) | payer MEDICAID | END 2020-08-27 18:25 | disposition critical access hospital (66) | LOC: EMS 18:24 | DX: R41.82 Altered mental status, unspecified (principal); R06.82 Tachypnea, not elsewhere classified; R50.9 Fever, unspecified | CPT/HCPCS: A0425; A0429; A0999 ==

== ENCOUNTER 2020-08-27 18:37 | Emergency (ER) | payer MEDICAID ==
[2020-08-27] MEDS ORDERED: LORazepam 2 MG/ML VIAL IVP STA (18:47)
[2020-08-27] MEDS ORDERED: ROCURONIUM 50 MG/5 ML VIAL IVP STA (18:47)
[2020-08-27] MEDS ORDERED: VANCOMYCIN INJ 2 GM in SODIUM CHLORIDE 0.9% 500 ML IV STA (18:48)
[2020-08-27] MEDS ORDERED: metroNIDAZOLE 500 MG/100 ML 500 MG/100 ML BAG IV STA (18:48)
[2020-08-27] MEDS ORDERED: CEFEPIME 2 GM in SODIUM CHLORIDE 0.9% MINIBAG 100 ML IV STA (18:48)
[2020-08-27] MEDS: PROPOFOL 200 MG/20 ML VIAL IVP STA ×2 (18:58→20:59)
[2020-08-27] MEDS ORDERED: SODIUM CHLORIDE 0.9% IV STA (19:00)
[2020-08-27] MEDS: PROPOFOL 500 MG/50 ML 500 MG/50 ML VIAL IV STA ×2 (19:15→21:05)
[2020-08-27 19:16] LABS: BASOPHILS % (AUTO) 0.3 %; EOSINOPHILS # (AUTO) 0.1 10^3/uL (0.0-0.7); EOSINOPHILS % (AUTO) 1.6 %; HCT - HEMATOCRIT 25.5 % (42.0-52.0); LYMPHOCYTES # (AUTO) 2.4 10^3/uL (1.5-3.5); LYMPHOCYTES % (AUTO) 34.7 %; MEAN CORPUSCULAR HEMOGLOBIN 27.1 pg (27.0-31.0); MEAN CORPUSCULAR HGB CONC 31.4 g/dL (32.0-36.0); MEAN CORPUSCULAR VOLUME 86.4 fL (80.0-94.0); MEAN PLATELET VOLUME 10.3 fL (7.4-11.4); MONOCYTES # (AUTO) 0.5 10^3/uL (0.0-1.0); MONOCYTES % (AUTO) 6.9 %; NEUTROPHILS # (AUTO) 3.7 10^3/uL (1.5-6.6); NEUTROPHILS % (AUTO) 53.2 %; NRBC ABSOLUTE COUNT (AUTO) 0.02 x10^3/uL; NUCLEATED RED BLOOD CELLS AUTO 0.3 /100WBC; PLT - PLATELET COUNT 126 10^3/uL (130-450); RED BLOOD COUNT 2.95 10^6/uL (4.70-6.10); RED CELL DISTRIBUTION WIDTH 15.2 % (12.0-15.0)
--- NOTE | 2020-08-27 19:22 | ED Physician Documentation ---
PD HPI ALTERED MENTAL STATUS - Stated complaint Stated Complaint: FOUND DOWN - Chief complaint Chief Complaint: Neuro - History obtained from History obtained from: EMS - Additional information Additional information: 65-year-old gentleman reviewed the chart shows history of type 2 diabetes, morbid obesity, hypertension, hyper high cholesterol, lower extremity neuropathy. He is on warfarin at last check for atrial fibrillation.. Reportedly was in his car, not running. Had a temperature of 109 in a heat wave. History is unavailable from the patient. He is being bagged on arrival. Review of Systems Unable to obtain: AMS PD PAST MEDICAL HISTORY - Past Medical History Cardiovascular: Hypertension, Atrial fibrillation Respiratory: Sleep apnea Endocrine/Autoimmune: Type 2 diabetes GI: Hiatal hernia : None HEENT: Chronic vision loss Psych: Depression Musculoskeletal: Chronic back pain Derm: Other drug resistant infections - Past Surgical History Past Surgical History: Yes General: Gastric surgery, Colonoscopy Ortho: Amputation, Other HEENT: Tonsil/Adenoidectomy, Other - Present Medications Home Medications: Ambulatory Orders Medication Instructions Recorded Confirmed Gabapentin [Neurontin] 300 mg PO TID 09/16/13 12/24/16 Hydrochlorothiazide 25 mg PO DAILY 09/16/13 12/24/16 Warfarin Sodium [Coumadin] 7.5 mg PO DAILY 09/16/13 12/24/16 metFORMIN [Glucophage] 500 mg PO BID 09/16/13 12/24/16 Bupropion HCl [Wellbutrin Xl] 300 mg PO DAILY 01/05/14 12/24/16 Cholecalciferol (Vitamin D3) 4,000 unit PO DAILY 01/05/14 12/24/16 [Vitamin D-3] Escitalopram Oxalate [Lexapro] 20 mg PO DAILY 01/05/14 12/24/16 Fluticasone [Flonase] 1 sprays TO BID PRN 01/05/14 12/24/16 Zolpidem [Ambien] 10 mg PO HS 01/05/14 12/24/16 - Allergies Allergies/Adverse Reactions: Allergies Allergy/AdvReac Type Severity Reaction Status Date / Time vancomycin Allergy Rash Verified 08/27/20 19:11 - Social History Does the pt smoke?: No Smoking Status: Never smoker Does the pt drink ETOH?: No Does the pt have substance abuse?: No - Immunizations Immunizations are current?: No Immunizations: TDAP >10years/unknown - POLST Patient has POLST: No PD ED PE NORMAL - Vitals Vital signs reviewed: Yes - General General: Other (Spontaneous but sonorous respirations, minimal response to pain,) - Cardiac Cardiac: Other (Cardiac but regular, no murmur) - Respiratory Respiratory: Other (Sonorous agonal respirations, distant breath sounds possibly due to body habitus) - Abdomen Abdomen: Non tender (With reducible umbilical hernia.) - Derm Derm: Normal color, Warm and dry - Neuro Eye Opening: None Motor: Withdraws to Pain Verbal: None GCS Score: 6 Results - Vitals Vitals: Vital Signs - 24 hr 08/27/20 08/27/20 08/27/20 18:39 18:51 18:57 Temperature 41.5 C H Heart Rate 131 H 131 H 144 H Respiratory 19 33 H 24 Rate Blood Pressure 138/60 H 129/56 L O2 Saturation 97 94 95 08/27/20 08/27/20 08/27/20 18:59 19:00 19:02 Temperature Heart Rate 135 H 121 H 129 H Respiratory 48 H 20 Rate Blood Pressure 122/56 L 115/103 H O2 Saturation 82 L 96 08/27/20 08/27/20 08/27/20 19:43 19:45 20:06 Temperature 39.8 C H 38.9 C H 38.6 C H Heart Rate 97 85 80 Respiratory 16 15 15 Rate Blood Pressure 119/56 L 110/55 L 101/67 O2 Saturation 97 99 98 08/27/20 08/27/20 08/27/20 20:10 20:17 20:30 Temperature 38.4 C H 38 C H 37.3 C Heart Rate 84 77 77 Respiratory 17 16 19 Rate Blood Pressure 94/65 100/55 L 105/56 L O2 Saturation 99 99 99 08/27/20 08/27/20 20:45 20:58 Temperature 36.6 C Heart Rate 74 71 Respiratory 18 18 Rate Blood Pressure 106/46 L 96/53 L O2 Saturation 97 98 Oxygen O2 Source [] Room air O2 Source [] Room air O2 Source Mechanical ventilator - EKG (time done) 1930 Rate: Rate (enter#) (105) Rhythm: Atrial fibrillation [place]: Normal QRS: Low voltage Ischemia: Non specific changes Computer interpretation: Agree with computer - Labs Labs: Laboratory Tests 08/27/20 08/27/20 08/27/20 19:07 19:07 19:07 WBC 7.0 RBC 2.95 L Hgb 8.0 L Hct 25.5 L MCV 86.4 MCH 27.1 MCHC 31.4 L RDW 15.2 H Plt Count 126 L MPV 10.3 Neut # (Auto) 3.7 Lymph # (Auto) 2.4 [place] # (Auto) 0.5 Eos # (Auto) 0.1 Baso # (Auto) 0.0 Absolute Nucleated RBC 0.02 Nucleated RBC % 0.3 PT INR Bld Gas Analysis Time Sample Site ABG pH ABG pCO2 ABG pO2 ABG HCO3 ABG Total CO2 ABG O2 Saturation ABG Base Excess Elio Test VBG pH VBG pCO2 VBG pO2 VBG HCO3 VBG Total CO2 VBG O2 Saturation VBG Base Excess Respiration Rate O2 Delivery Device Vent Mode FiO2 Tidal Volume PEEP Pressure Support Vent Sodium 138 Potassium 2.9 L Chloride 117 H Carbon Dioxide 11 L* Anion Gap 10.0 BUN 12 Creatinine 0.7 Estimated GFR (MDRD) 114 Glucose 177 H Lactic Acid 2.6 H Calcium 4.5 L* Phosphorus 1.1 L Magnesium 0.7 L* Total Bilirubin 0.2 AST 22 ALT 16 Alkaline Phosphatase 39 L Total Creatine Kinase 56 Troponin I High Sens Total Protein 3.3 L Albumin 1.9 L Globulin 1.4 L Albumin/Globulin Ratio 1.4 TSH Urine Color Urine Clarity Urine pH Ur Specific [place] Urine Protein Urine Glucose (UA) Urine Ketones Urine Occult Blood Urine Nitrite Urine Bilirubin Urine Urobilinogen Ur Leukocyte Esterase Urine RBC Urine WBC Ur Squamous Epith Cells Urine Bacteria Urine Culture Comments Nasal Adenovirus (PCR) Nasal B. parapertussis DNA (PCR) Nasal Coronavir 229E PCR Nasal Coronavir HKU1 PCR Nasal Coronavir NL63 PCR Nasal Coronavir OC43 PCR Nasal Enterovir/Rhinovir PCR Nasal Influenza B PCR Nasal Influenza A PCR Nasal Parainfluen 1 PCR Nasal Parainfluen 2 PCR Nasal Parainfluen 3 PCR Nasal Parainfluen 4 PCR Nasal RSV (PCR) Nasal B.pertussis DNA PCR Nasal C.pneumoniae (PCR) To Human Metapneumo PCR Nasal M.pneumoniae (PCR) Nasal SARS-CoV-2 (PCR) Salicylates < 6.0 Urine Opiates Screen Ur Oxycodone Screen Urine Methadone Screen Ur Propoxyphene Screen Acetaminophen < 10 L Ur Barbiturates Screen Ur Tricyclics Screen Ur Phencyclidine Scrn Ur Amphetamine Screen U Methamphetamines Scrn U Benzodiazepines Scrn Urine Cocaine Screen U Cannabinoids Screen Ethyl Alcohol < 5.0 08/27/20 08/27/20 08/27/20 19:07 19:07 19:07 WBC RBC Hgb Hct MCV MCH MCHC RDW Plt Count MPV Neut # (Auto) Lymph # (Auto) [place] # (Auto) Eos # (Auto) Baso # (Auto) Absolute Nucleated RBC Nucleated RBC % PT 34.7 H INR 3.4 H Bld Gas Analysis Time Sample Site ABG pH ABG pCO2 ABG pO2 ABG HCO3 ABG Total CO2 ABG O2 Saturation ABG Base Excess Elio Test VBG pH VBG pCO2 VBG pO2 VBG HCO3 VBG Total CO2 VBG O2 Saturation VBG Base Excess Respiration Rate O2 Delivery Device Vent Mode FiO2 Tidal Volume PEEP Pressure Support Vent Sodium Potassium Chloride Carbon Dioxide Anion Gap BUN Creatinine Estimated GFR (MDRD) Glucose Lactic Acid Calcium Phosphorus Magnesium Total Bilirubin AST ALT Alkaline Phosphatase Total Creatine Kinase Troponin I High Sens 31.4 H* Total Protein Albumin Globulin Albumin/Globulin Ratio TSH 3.51 Urine Color Urine Clarity Urine pH Ur Specific [place] Urine Protein Urine Glucose (UA) Urine Ketones Urine Occult Blood Urine Nitrite Urine Bilirubin Urine Urobilinogen Ur Leukocyte Esterase Urine RBC Urine WBC Ur Squamous Epith Cells Urine Bacteria Urine Culture Comments Nasal Adenovirus (PCR) Nasal B. parapertussis DNA (PCR) Nasal Coronavir 229E PCR Nasal Coronavir HKU1 PCR Nasal Coronavir NL63 PCR Nasal Coronavir OC43 PCR Nasal Enterovir/Rhinovir PCR Nasal Influenza B PCR Nasal Influenza A PCR Nasal Parainfluen 1 PCR Nasal Parainfluen 2 PCR Nasal Parainfluen 3 PCR Nasal Parainfluen 4 PCR Nasal RSV (PCR) Nasal B.pertussis DNA PCR Nasal C.pneumoniae (PCR) To Human Metapneumo PCR Nasal M.pneumoniae (PCR) Nasal SARS-CoV-2 (PCR) Salicylates Urine Opiates Screen Ur Oxycodone Screen Urine Methadone Screen Ur Propoxyphene Screen Acetaminophen Ur Barbiturates Screen Ur Tricyclics Screen Ur Phencyclidine Scrn Ur Amphetamine Screen U Methamphetamines Scrn U Benzodiazepines Scrn Urine Cocaine Screen U Cannabinoids Screen Ethyl Alcohol 08/27/20 08/27/20 08/27/20 19:07 19:12 19:27 WBC RBC Hgb Hct MCV MCH MCHC RDW Plt Count MPV Neut # (Auto) Lymph # (Auto) [place] # (Auto) Eos # (Auto) Baso # (Auto) Absolute Nucleated RBC Nucleated RBC % PT INR Bld Gas Analysis Time Sample Site ABG pH ABG pCO2 ABG pO2 ABG HCO3 ABG Total CO2 ABG O2 Saturation ABG Base Excess Elio Test VBG pH 7.290 L VBG pCO2 23.0 L VBG pO2 110.4 H VBG HCO3 10.8 L VBG Total CO2 11.5 L VBG O2 Saturation 96.7 H VBG Base Excess -14.2 L Respiration Rate O2 Delivery Device Vent Mode FiO2 Tidal Volume PEEP Pressure Support Vent Sodium Potassium Chloride Carbon Dioxide Anion Gap BUN Creatinine Estimated GFR (MDRD) Glucose Lactic Acid Calcium Phosphorus Magnesium Total Bilirubin AST ALT Alkaline Phosphatase Total Creatine Kinase Troponin I High Sens Total Protein Albumin Globulin Albumin/Globulin Ratio TSH Urine Color YELLOW Urine Clarity CLEAR Urine pH 6.0 Ur Specific [place] 1.020 Urine Protein NEGATIVE Urine Glucose (UA) 250 H Urine Ketones NEGATIVE Urine Occult Blood NEGATIVE Urine Nitrite NEGATIVE Urine Bilirubin NEGATIVE Urine Urobilinogen 1 (NORMAL) Ur Leukocyte Esterase NEGATIVE Urine RBC 0-5 Urine WBC 0-3 Ur Squamous Epith Cells MOD Squamous H Urine Bacteria Rare Urine Culture Comments NOT INDICATED Nasal Adenovirus (PCR) NOT DETECTED Nasal B. parapertussis DNA (PCR) NOT DETECTED Nasal Coronavir 229E PCR NOT DETECTED Nasal Coronavir HKU1 PCR NOT DETECTED Nasal Coronavir NL63 PCR NOT DETECTED Nasal Coronavir OC43 PCR NOT DETECTED Nasal Enterovir/Rhinovir PCR NOT DETECTED Nasal Influenza B PCR NOT DETECTED Nasal Influenza A PCR NOT DETECTED Nasal Parainfluen 1 PCR NOT DETECTED Nasal Parainfluen 2 PCR NOT DETECTED Nasal Parainfluen 3 PCR NOT DETECTED Nasal Parainfluen 4 PCR NOT DETECTED Nasal RSV (PCR) NOT DETECTED Nasal B.pertussis DNA PCR NOT DETECTED Nasal C.pneumoniae (PCR) NOT DETECTED To Human Metapneumo PCR NOT DETECTED Nasal M.pneumoniae (PCR) NOT DETECTED Nasal SARS-CoV-2 (PCR) NOT DETECTED Salicylates Urine Opiates Screen NEGATIVE Ur Oxycodone Screen NEGATIVE Urine Methadone Screen NEGATIVE Ur Propoxyphene Screen NEGATIVE Acetaminophen Ur Barbiturates Screen NEGATIVE Ur Tricyclics Screen POSITIVE H Ur Phencyclidine Scrn NEGATIVE Ur Amphetamine Screen NEGATIVE U Methamphetamines Scrn NEGATIVE U Benzodiazepines Scrn NEGATIVE Urine Cocaine Screen NEGATIVE U Cannabinoids Screen POSITIVE H Ethyl Alcohol 08/27/20 20:10 WBC RBC Hgb Hct MCV MCH MCHC RDW Plt Count MPV Neut # (Auto) Lymph # (Auto) [place] # (Auto) Eos # (Auto) Baso # (Auto) Absolute Nucleated RBC Nucleated RBC % PT INR Bld Gas Analysis Time 2025 Sample Site RIGHT RADIAL ABG pH 7.24 L ABG pCO2 38 ABG pO2 201 H* ABG HCO3 16.0 L ABG Total CO2 17.2 L ABG O2 Saturation 99 H ABG Base Excess -10.6 L Elio Test POSITIVE VBG pH VBG pCO2 VBG pO2 VBG HCO3 VBG Total CO2 VBG O2 Saturation VBG Base Excess Respiration Rate 16 O2 Delivery Device VENTILATOR Vent Mode SIMV FiO2 100.00 Tidal Volume 650 PEEP 5 Pressure Support Vent 10 Sodium Potassium Chloride Carbon Dioxide Anion Gap BUN Creatinine Estimated GFR (MDRD) Glucose Lactic Acid Calcium Phosphorus Magnesium Total Bilirubin AST ALT Alkaline Phosphatase Total Creatine Kinase Troponin I High Sens Total Protein Albumin Globulin Albumin/Globulin Ratio TSH Urine Color Urine Clarity Urine pH Ur Specific [place] Urine Protein Urine Glucose (UA) Urine Ketones Urine Occult Blood Urine Nitrite Urine Bilirubin Urine Urobilinogen Ur Leukocyte Esterase Urine RBC Urine WBC Ur Squamous Epith Cells Urine Bacteria Urine Culture Comments Nasal Adenovirus (PCR) Nasal B. parapertussis DNA (PCR) Nasal Coronavir 229E PCR Nasal Coronavir HKU1 PCR Nasal Coronavir NL63 PCR Nasal Coronavir OC43 PCR Nasal Enterovir/Rhinovir PCR Nasal Influenza B PCR Nasal Influenza A PCR Nasal Parainfluen 1 PCR Nasal Parainfluen 2 PCR Nasal Parainfluen 3 PCR Nasal Parainfluen 4 PCR Nasal RSV (PCR) Nasal B.pertussis DNA PCR Nasal C.pneumoniae (PCR) To Human Metapneumo PCR Nasal M.pneumoniae (PCR) Nasal SARS-CoV-2 (PCR) Salicylates Urine Opiates Screen Ur Oxycodone Screen Urine Methadone Screen Ur Propoxyphene Screen Acetaminophen Ur Barbiturates Screen Ur Tricyclics Screen Ur Phencyclidine Scrn Ur Amphetamine Screen U Methamphetamines Scrn U Benzodiazepines Scrn Urine Cocaine Screen U Cannabinoids Screen Ethyl Alcohol - Rads (name of study) 1v chest Radiology: EMP read contemporaneously (Right greater than left edema versus pneumonia, appropriate position of central line and endotracheal tube.) Procedures - Intubation Provider: Emergency physician Medications: Propofol, Rocuronium Blade: Glidescope Tube: Size-enter number (8.0), Cuffed Route: Oral Confirmation: Direct visualization, Bilateral breath sounds, End tidal CO2, Pulse ox, Chest xray Complications: No compications - Central Line Central Line Preparation: Unable to obtain consent, Time out completed, Ultrasound used, Sterile prep and drape Central line location: Right IJ Central line type: Triple lumen Central line aftercare: Chlorhexidine disc placed, Secured, Placement confirmed, No pneumothorax, No complications, Bundle checklist complete, Pt tolerated well PD MEDICAL DECISION MAKING - ED course ED course: 65-year-old gentleman with history of A. fib, morbid obesity presents with apparent heatstroke, less likely sepsis. He was attended to immediately and placed in an ice bath, central line placed and given large volume IV crystalloid. Also out of abundance of caution he was cultured up and given broad-spectrum IV antibiotics. He required intubation for his mental status. Given his size and criticality of his illness will likely need to go to a tertiary center. [facility] was full. [facility] was also full. He was graciously accepted by Dr. Marcelo Anaya, gis administrator at [facility] afew min p 8 PM. They do request that we do not arrange transport until his Covid test is done. - Critical Care Time(min): 90 Time Includes: Direct patient care, Review records, Reassess patient, Document care, Coordinate care, Medical consult, Family consult for tx dec Data interpretation: Labs, Pulse ox Procedures included in critical care time: Peripheral IV Procedures excluded from critical care time: Central IV, Intubation, EKG Departure - Departure Disposition: 02 Transfer Acute Care Hosp Clinical Impression: Supratherapeutic INR Atrial fibrillation Qualifiers: Atrial fibrillation type: unspecified chronic Qualified Code(s): I48.20 - Chronic atrial fibrillation, unspecified; I48.2 - Chronic atrial fibrillation Heat stroke Qualifiers: Encounter type: initial encounter Qualified Code(s): T67.01XA - Heatstroke and sunstroke, initial encounter Respiratory failure Qualifiers: Chronicity: acute Respiratory failure complication: unspecified whether with hypoxia or hypercapnia Qualified Code(s): J96.00 - Acute respiratory failure, u nspecified whether with hypoxia or hypercapnia Coma Qualifiers: Coma depth: [place] coma 3-8 Coma timing: in the field (EMT or ambulance) Qualified Code(s): R40.2431 - [place] coma scale score 3-8, in the field [EMT or ambulance] Condition: Critical
[2020-08-27 19:23] LABS: VBG BASE EXCESS -14.2 mmol/L (-2 - +2); VBG HCO3 10.8 mmol/L (23-28); VBG OXYGEN SATURATION 96.7 % (60-80); VBG PH 7.29 (7.31-7.41); VBG PO2 110.4 mmHg (25-47); VBG TOTAL CO2 11.5 mmol/L (24-29)
[2020-08-27 19:25] LABS: INR 3.4 (0.8-1.2); PT - PROTHROMBIN TIME 34.7 secs (9.9-12.6)
[2020-08-27 19:29] LABS: LACTIC ACID, VENOUS 2.6 mmol/L (0.5-2.2)
[2020-08-27 19:31] LABS: ACETAMINOPHEN < 10 ug/mL (10-30); ALBUMIN 1.9 g/dL (3.2-5.5); ALBUMIN/GLOBULIN RATIO 1.4 (1.0-2.2); ALKALINE PHOSPHATASE 39 IU/L (42-121); ALT ALANINE AMINOTRANSFERASE 16 IU/L (10-60); AST ASPARTATE AMINOTRANSFERASE 22 IU/L (10-42); BILIRUBIN,TOTAL 0.2 mg/dL (0.2-1.0); BUN - BLOOD UREA NITROGEN 12 mg/dL (6-20); CHLORIDE 117 mmol/L (101-111); CK- CREATINE KINASE 56 IU/L (22-269); CREATININE 0.7 mg/dL (0.6-1.2); ETOH - ETHANOL < 5.0 mg/dL; GFR - MDRD 114 (>89); GLUCOSE 177 mg/dL (70-100); PHOSPHORUS 1.1 mg/dL (2.5-4.6); POTASSIUM 2.9 mmol/L (3.5-5.0); SALICYLATE < 6.0 mg/dL; SODIUM 138 mmol/L (135-145); TOTAL PROTEIN 3.3 g/dL (6.7-8.2)
[2020-08-27 19:34] LABS: CARBON DIOXIDE - CO2 11 mmol/L (21-32)
[2020-08-27] MEDS ORDERED: CALCIUM CHLORIDE ABBOJECT 1000MG/10 ML SYRINGE IVP STA (19:34)
[2020-08-27] MEDS ORDERED: MAGNESIUM SULFATE 2 GRAM 2 GM/50 ML BAG IV ONE (19:34)
[2020-08-27 19:35] LABS: CALCIUM 4.5 mg/dL (8.5-10.3); MAGNESIUM 0.7 mg/dL (1.7-2.8)
[2020-08-27] MEDS ORDERED: VANCOMYCIN 1 GM VIAL ONE (19:35)
--- NOTE | 2020-08-27 19:37 | XRAY Report ---
PROCEDURE: Chest for Line Placement INDICATIONS: resp failure TECHNIQUE: One view of the chest was acquired. COMPARISON: 07/11/2015 plain film FINDINGS: Surgical changes and devices: ETT is present, tip of which is in expected location. Right-sided centr al venous catheter is present, tip of which projects over the mid SVC. Lungs and pleura: No pleural effusions or pneumothorax. There is moderate right greater than left bi lateral perihilar airspace opacity. Mediastinum: Mediastinal contours appear normal. Heart size is normal. Bones and chest wall: No suspicious bony lesions. Overlying soft tissues appear unremarkable. IMPRESSION: Right greater than left edema versus pneumonia. Reviewed by: Terrie Tang MD on 08/27/2020 7:35 PM PDT Approved by: Terrie Tang MD on 08/27/2020 7:35 PM PDT Station ID: [id number]
[2020-08-27 19:39] LABS: MUDS CUTOFF CONCENTRATIONS CUTOFF CONC BELOW:
[2020-08-27] MEDS ORDERED: POTASSIUM CHLOR 10 MEQ/100 ML 10 MEQ/100 ML BAG IV STA (19:40)
[2020-08-27 19:42] LABS: BILIRUBIN,URINE NEGATIVE (NEGATIVE); GLUCOSE, URINE (UA) 250 mg/dL (NEGATIVE); KETONES,URINE (UA) NEGATIVE (NEGATIVE); LEUKOCYTE ESTERASE, URINE NEGATIVE (NEGATIVE); NITRITE,URINE NEGATIVE (NEGATIVE); OCCULT BLOOD,URINE NEGATIVE (NEGATIVE); PROTEIN,URINE NEGATIVE (NEGATIVE); UROBILINOGEN,URINE 1 (NORMAL) E.U./dL (NORMAL)
[2020-08-27 19:49] LABS: CLARITY,URINE CLEAR (CLEAR)
[2020-08-27 19:50] LABS: BACTERIA,URINE Rare /HPF (None Seen); RBC,URINE 0-5 /HPF (0-5); SQUAMOUS EPITHELIAL CELL,UR MOD Squamous (<= Few); WBC,URINE 0-3 /HPF (0-3)
[2020-08-27 19:59] LABS: AMPHETAMINE SCREEN,URINE NEGATIVE (NEGATIVE); BARBITURATE SCREEN,UR NEGATIVE (NEGATIVE); BENZODIAZEPINES SCREEN, URINE NEGATIVE (NEGATIVE); COCAINE SCREEN URINE NEGATIVE (NEGATIVE); METHADONE SCREEN, URINE NEGATIVE (NEGATIVE); METHAMPHETAMINES SCREEN, URINE NEGATIVE (NEGATIVE); OPIATE SCREEN, URINE NEGATIVE (NEGATIVE); OXYCODONE SCREEN, URINE NEGATIVE (NEGATIVE); PROPOXYPHENE SCREEN, URINE NEGATIVE (NEGATIVE); THC CANNABINOID SCREEN, URINE POSITIVE (NEGATIVE); TRICYCLIC ANTIDEPRESSANT,URINE POSITIVE (NEGATIVE)
[2020-08-27 20:30] LABS: ABG BASE EXCESS -10.6 mmol/L (-2.0-3.0); ABG OXYGEN SATURATION 99 % (94-98); ABG PCO2 38 mmHg (34-45); ABG PH 7.24 (7.35-7.45); ABG TCO2 17.2 MMOL/L (21.0-29.0); ALLEN TEST POSITIVE
[2020-08-27 20:31] LABS: ABG MODE OF VENTILATION SIMV; ABG RESPIRATORY RATE 16 b/min
[2020-08-27 20:34] LABS: ABG PO2 201 mmHg (80-100)
[2020-08-27 20:58] VITALS: BP 96/53
[2020-08-27 21:00] LABS: B. PARAPERTUSSIS- RESP PCR PAN NOT DETECTED; B. PERTUSSIS- RESP PCR PANEL NOT DETECTED; C. PNEUMONIAE- RESP PCR PANEL NOT DETECTED; CORONAVIRUS 229E-RESP PCR NOT DETECTED; CORONAVIRUS HKU1-RESP PCR NOT DETECTED; CORONAVIRUS NL63-RESP PCR NOT DETECTED; CORONAVIRUS OC43-RESP PCR NOT DETECTED; HUMAN METAPNEUMOVIRUS NOT DETECTED; INFLUENZA A- RESP PCR PANEL NOT DETECTED; INFLUENZA B - RESP PCR PANEL NOT DETECTED; M. PNEUMONIAE- RESP PCR PANEL NOT DETECTED; PARAINFLUENZA VIRUS 1 NOT DETECTED; PARAINFLUENZA VIRUS 2 NOT DETECTED; PARAINFLUENZA VIRUS 3 NOT DETECTED; PARAINFLUENZA VIRUS 4 NOT DETECTED; RHINOVIRUS/ENTEROVIRUS NOT DETECTED; RSV- RESP PCR PANEL NOT DETECTED; SARS-CoV-2 -RESP PCR PANEL NOT DETECTED
[2020-08-27] MEDS ORDERED: PROPOFOL 500 MG/50 ML 500 MG/50 ML VIAL ONE ×2 (21:07→21:25)
== END 2020-08-27 22:00 | disposition short-term general hospital (02) ==
LOC: EDUNIT# → ED 18:37
DX: T67.01XA Heatstroke and sunstroke, initial encounter (principal); R40.2431 Glasgow coma scale score 3-8, in the field [EMT or ambulance]; R40.4 Transient alteration of awareness; J96.00 Acute respiratory failure, unspecified whether with hypoxia or hypercapnia; X30.XXXA Exposure to excessive natural heat, initial encounter; Y92.810 Car as the place of occurrence of the external cause; I48.20 Chronic atrial fibrillation, unspecified; Z79.01 Long term (current) use of anticoagulants; R79.1 Abnormal coagulation profile; Z20.822 Contact with and (suspected) exposure to COVID-19; E11.42 Type 2 diabetes mellitus with diabetic polyneuropathy; Z79.84 Long term (current) use of oral hypoglycemic drugs; I10 Essential (primary) hypertension; E78.00 Pure hypercholesterolemia, unspecified; K42.9 Umbilical hernia without obstruction or gangrene; E66.01 Morbid (severe) obesity due to excess calories; Z68.45 Body mass index [BMI] 70 or greater, adult
CPT/HCPCS: 0202U; 31500; 36415; 36556; 51702; 71045; 80053; 80306; 80307; 80320; 80329; 81001; 82550; 82803; 83605; 83735; 84100; 84443; 84484; 85025; 85610; 87040; 93005; 94002; 96365; 96368; 96375; 99291; 99292; J3370; 87086

== ENCOUNTER 2020-09-04 10:06 | Outpatient (CLI) | payer MEDICAID | END 2020-09-04 10:07 | disposition home or self-care (01) | LOC: LAB.N 10:06 | PROVIDERS: ATTEND Internal Medicine | DX: I48.91 Unspecified atrial fibrillation (principal); Z79.01 Long term (current) use of anticoagulants | CPT/HCPCS: 36416; 85610 ==

== ENCOUNTER 2020-09-12 11:16 | Outpatient (CLI) | payer MEDICAID ==
[2020-09-12 17:40] LABS: BASOPHILS % (AUTO) 0.2 %; EOSINOPHILS # (AUTO) 0.1 10^3/uL (0.0-0.7); LYMPHOCYTES # (AUTO) 1.9 10^3/uL (1.5-3.5); LYMPHOCYTES % (AUTO) 23.7 %; MEAN CORPUSCULAR HEMOGLOBIN 27.6 pg (27.0-31.0); MEAN CORPUSCULAR VOLUME 89.2 fL (80.0-94.0); MEAN PLATELET VOLUME 10.5 fL (7.4-11.4); MONOCYTES # (AUTO) 0.6 10^3/uL (0.0-1.0); MONOCYTES % (AUTO) 7.1 %; NEUTROPHILS # (AUTO) 5.4 10^3/uL (1.5-6.6); NEUTROPHILS % (AUTO) 67.4 %; PLT - PLATELET COUNT 272 10^3/uL (130-450); RED BLOOD COUNT 4.71 10^6/uL (4.70-6.10); RED CELL DISTRIBUTION WIDTH 15.9 % (12.0-15.0); WHITE BLOOD COUNT 8.1 x10^3/uL (4.8-10.8)
[2020-09-12 17:53] LABS: CREATININE,URINE 45.2 mg/dL; MICROALBUM/CREATININE RATIO,UR 66.4 ug/mg (<30.0)
[2020-09-12 17:55] LABS: ALBUMIN 3.9 g/dL (3.2-5.5); ALBUMIN/GLOBULIN RATIO 1.3 (1.0-2.2); ALKALINE PHOSPHATASE 75 IU/L (42-121); ALT ALANINE AMINOTRANSFERASE 19 IU/L (10-60); AST ASPARTATE AMINOTRANSFERASE 19 IU/L (10-42); BILIRUBIN,TOTAL 0.7 mg/dL (0.2-1.0); BUN - BLOOD UREA NITROGEN 15 mg/dL (6-20); CALCIUM 8.3 mg/dL (8.5-10.3); CARBON DIOXIDE - CO2 25 mmol/L (21-32); CHLORIDE 101 mmol/L (101-111); CHOL/HDL RATIO 2.7 (<5.0); CHOLESTEROL 153 mg/dL; GFR - MDRD 75 (>89); GLUCOSE 172 mg/dL (70-100); HDL CHOLESTEROL 56 mg/dL; LDL CHOLESTEROL,CALCULATED 82 mg/dL; LDL/HDL RATIO 1.5 (<3.6); MAGNESIUM 1.4 mg/dL (1.7-2.8); POTASSIUM 4.1 mmol/L (3.5-5.0); SODIUM 135 mmol/L (135-145); TOTAL PROTEIN 6.9 g/dL (6.7-8.2); TRIGLYCERIDES 76 mg/dL; VLDL CHOLESTEROL 15 mg/dL
[2020-09-12 18:06] LABS: THYROID STIMULATING HORMONE 2.87 uIU/mL (0.34-5.60)
[2020-09-12 20:21] LABS: ESTIMATED AVERAGE GLUCOSE 197 mg/dL (70-100); HEMOGLOBIN A1c% 8.5 % (4.27-6.07)
== END 2020-09-12 11:17 | disposition home or self-care (01) ==
LOC: LAB.N 11:16
PROVIDERS: ATTEND Family Medicine
DX: E66.01 Morbid (severe) obesity due to excess calories (principal); E11.9 Type 2 diabetes mellitus without complications; I48.91 Unspecified atrial fibrillation; I10 Essential (primary) hypertension; E78.5 Hyperlipidemia, unspecified; G62.9 Polyneuropathy, unspecified; Z79.4 Long term (current) use of insulin; Z87.898 Personal history of other specified conditions
CPT/HCPCS: 36415; 80050; 80061; 82043; 82570; 83036; 83721; 83735

== ENCOUNTER 2021-04-03 10:30 | Outpatient (CLI) | payer MEDICAID ==
--- NOTE | 2021-04-03 16:26 | XRAY Report ---
PROCEDURE: Cervical Spine 2 View INDICATIONS: DEGENERATIVE DISC DISEASE, CERVICAL SPINE TECHNIQUE: 3 view(s) of the cervical spine were acquired. COMPARISON: None. FINDINGS: Bones: No fractures or dislocations to the C7-T1 level. There is straightening of normal cervical lo rdosis. Degenerative endplate changes, loss of disc height and bilateral facet hypertrophic changes t hroughout cervical spine is seen more prominent at C5-6 through C6-7 levels. The lateral masses of C1 appear intact on the odontoid view. No suspicious bony lesions. Soft tissues: No prevertebral soft tissue swelling. IMPRESSION: Degenerative disc disease throughout cervical spine. No acute compression fracture or sp ondylolisthesis. Straightening of normal cervical lordosis. Reviewed by: Cristo Mark MD on 04/03/2021 4:24 PM PST Approved by: Cristo Mark MD on 04/03/2021 4:24 PM PST Station ID: [id number]
== END 2021-04-03 10:31 | disposition home or self-care (01) ==
LOC: DI.N 10:30
PROVIDERS: ATTEND Internal Medicine
DX: M47.22 Other spondylosis with radiculopathy, cervical region (principal); M50.122 Cervical disc disorder at C5-C6 level with radiculopathy; E11.8 Type 2 diabetes mellitus with unspecified complications; E78.5 Hyperlipidemia, unspecified; F32.A Depression, unspecified; Z98.84 Bariatric surgery status; Z12.5 Encounter for screening for malignant neoplasm of prostate; Z79.4 Long term (current) use of insulin
CPT/HCPCS: 36415; 80050; 80061; 82043; 82306; 82570; 82607; 82728; 83036; 83540; 83721; 84153; 84466

== ENCOUNTER 2021-04-03 11:21 | Outpatient (CLI) | payer MEDICAID ==
[2021-04-03 18:33] LABS: BASOPHILS % (AUTO) 0.4 %; EOSINOPHILS # (AUTO) 0.1 10^3/uL (0.0-0.7); EOSINOPHILS % (AUTO) 0.8 %; HCT - HEMATOCRIT 45.3 % (42.0-52.0); HGB - HEMOGLOBIN 14.4 g/dL (14.0-18.0); LYMPHOCYTES # (AUTO) 2.2 10^3/uL (1.5-3.5); LYMPHOCYTES % (AUTO) 21.2 %; MEAN CORPUSCULAR HEMOGLOBIN 27.4 pg (27.0-31.0); MEAN CORPUSCULAR HGB CONC 31.8 g/dL (32.0-36.0); MEAN CORPUSCULAR VOLUME 86.1 fL (80.0-94.0); MEAN PLATELET VOLUME 11.1 fL (7.4-11.4); MONOCYTES # (AUTO) 0.7 10^3/uL (0.0-1.0); MONOCYTES % (AUTO) 6.3 %; NEUTROPHILS # (AUTO) 7.4 10^3/uL (1.5-6.6); NEUTROPHILS % (AUTO) 70.7 %; PLT - PLATELET COUNT 240 10^3/uL (130-450); RED BLOOD COUNT 5.26 10^6/uL (4.70-6.10); RED CELL DISTRIBUTION WIDTH 14.6 % (12.0-15.0); WHITE BLOOD COUNT 10.4 x10^3/uL (4.8-10.8)
[2021-04-03 19:19] LABS: CREATININE,URINE 63.3 mg/dL; MICROALBUM/CREATININE RATIO,UR 271.7 ug/mg (<30.0); MICROALBUMIN,URINE 17.2 mg/dL (0-300.0)
[2021-04-03 19:25] LABS: % IRON SATURATION 24 % (20-50); ALBUMIN 4.1 g/dL (3.2-5.5); ALBUMIN/GLOBULIN RATIO 1.2 (1.0-2.2); ALKALINE PHOSPHATASE 80 IU/L (42-121); ALT ALANINE AMINOTRANSFERASE 20 IU/L (10-60); AST ASPARTATE AMINOTRANSFERASE 23 IU/L (10-42); BILIRUBIN,TOTAL 0.7 mg/dL (0.2-1.0); BUN - BLOOD UREA NITROGEN 17 mg/dL (6-20); CALCIUM 9.1 mg/dL (8.5-10.3); CARBON DIOXIDE - CO2 22 mmol/L (21-32); CHLORIDE 100 mmol/L (101-111); CHOL/HDL RATIO 2.6 (<5.0); CHOLESTEROL 161 mg/dL; GFR - MDRD 75 (>89); GLUCOSE 182 mg/dL (70-100); HDL CHOLESTEROL 61 mg/dL; IRON 101 ug/dL (45-182); LDL CHOLESTEROL,CALCULATED 82 mg/dL; LDL/HDL RATIO 1.3 (<3.6); SODIUM 134 mmol/L (135-145); THYROID STIMULATING HORMONE 4.36 uIU/mL (0.34-5.60); TOTAL IRON BINDING CAPACITY 421 ug/dL (250-450); TOTAL PROTEIN 7.6 g/dL (6.7-8.2); TRANSFERRIN 301 mg/dL (180-329); TRIGLYCERIDES 92 mg/dL; VLDL CHOLESTEROL 18 mg/dL
[2021-04-03 19:32] LABS: FERRITIN 20.8 ng/mL (23.9-336.2)
[2021-04-03 20:47] LABS: ESTIMATED AVERAGE GLUCOSE 206 mg/dL (70-100); HEMOGLOBIN A1c% 8.8 % (4.27-6.07)
== END 2021-04-03 11:22 | disposition home or self-care (01) ==
LOC: LAB.N 11:21
PROVIDERS: ATTEND Internal Medicine
DX: E11.8 Type 2 diabetes mellitus with unspecified complications (principal); E78.5 Hyperlipidemia, unspecified; Z98.84 Bariatric surgery status; Z12.5 Encounter for screening for malignant neoplasm of prostate; Z79.4 Long term (current) use of insulin; F32.A Depression, unspecified
CPT/HCPCS: 36415; 80050; 80061; 82043; 82306; 82570; 82607; 82728; 83036; 83540; 83721; 84153; 84466

== ENCOUNTER 2021-09-19 08:00 | Outpatient (CLI) | payer MEDICAID ==
[2021-09-19 18:02] LABS: FECAL OCCULT BLOOD (FIT) POSITIVE (NEGATIVE)
== END 2021-09-19 23:59 | disposition home or self-care (01) ==
LOC: LAB.R 08:00
PROVIDERS: ATTEND Internal Medicine
DX: E11.42 Type 2 diabetes mellitus with diabetic polyneuropathy (principal)
CPT/HCPCS: 82274

== ENCOUNTER 2022-01-17 06:30 | Day surgery (SDC) | payer MEDICAID ==
[2022-01-17] MEDS ORDERED: LACTATED RINGERS 1,000 ML IV ONE (07:00)
--- NOTE | 2022-01-17 07:05 | ANESTHESIA ---
Pre-Anesthesia VS, & Labs - Diagnosis Positive FIT test - Procedure colonoscopy Vital Signs: Temp Pulse Resp BP Pulse Ox O2 Flow Rate 36.6 C 79 24 146/55 H 100 01/17/22 06:35 01/17/22 06:35 01/17/22 06:35 01/17/22 06:35 01/17/22 06:35 Height: 5 ft Weight (kg): 145 kg Body Mass Index: 62.4 BMI Classification: Morbidly Obese - NPO >8 hours - Lab Results Current Lab Results: Laboratory Tests 01/17/22 06:57: POC Whole Bld Glucose 118 H Home Medications and Allergies Gabapentin [Neurontin] 300 mg PO TID 09/16/13 Hydrochlorothiazide 25 mg PO DAILY 09/16/13 Warfarin Sodium [Coumadin] 7.5 mg PO DAILY 09/16/13 metFORMIN [Glucophage] 500 mg PO BID 09/16/13 Bupropion HCl [Wellbutrin Xl] 300 mg PO DAILY 01/05/14 Cholecalciferol (Vitamin D3) [Vitamin D-3] 4,000 unit PO DAILY 01/05/14 Escitalopram Oxalate [Lexapro] 20 mg PO DAILY 01/05/14 Fluticasone [Flonase] 1 sprays TO BID PRN 01/05/14 Zolpidem [Ambien] 10 mg PO HS 01/05/14 Allergies/Adverse Reactions: Allergies Allergy/AdvReac Type Severity Reaction Status Date / Time vancomycin Allergy Rash Verified 08/27/20 19:11 Anes History & Medical History - Anesthetic History Anesthesia Complications: reports: No previous complications - Medical History Cardiovascular: reports: Hypertension, Atrial fibrillation Pulmonary: reports: Sleep apnea, CPAP use Gastrointestinal: reports: Hiatal hernia Urinary: reports: None Neuro: reports: None Musculoskeletal: reports: Chronic back pain Endocrine/Autoimmune: reports: Type 2 diabetes Blood Disorders: reports: Anemia Skin: reports: Other drug resistant infections Smoking Status: Former smoker (Quit 2011) Psychosocial: reports: Cannabis (twice per month, vapes) History of Cancer?: No - Surgical History General: reports: Gastric surgery, Colonoscopy Eyes Ears Nose Throat (EENT): reports: Tonsil/Adenoidectomy, Other Orthopedic: reports: Amputation, Other Exam General: Alert, Oriented x3, Cooperative, No acute distress Dental: Poor dentition Mouth Openin Fingerbreadth Neck Mobility: Normal Mallampati classification: II Thyromental Distance: 4-6 cm Mental/Cognitive Status: Alert/Oriented X3, Normal for patient Plan Anesthesia Type: General, Total IV Consent for Procedure(s) Verified and Reviewed: Yes Code Status: Attempt Resuscitation ASA classification: 3-Severe systemic disease Is this case an emergency?: No
[2022-01-17] MEDS ORDERED: PROPOFOL 500 MG/50 ML 500 MG/50 ML VIAL ONE (07:12)
[2022-01-17] MEDS ORDERED: fentaNYL 100 MCG/2 ML VIAL ONE (07:30)
[2022-01-17] MEDS ORDERED: LACTATED RINGERS 500 ML IV ONE (08:05)
[2022-01-17 08:31] VITALS: BP 106/49
--- NOTE | 2022-01-17 12:17 | ANESTHESIA POST OP EVALUATION ---
Anesthesia Post Eval - Post Anesthesia Eval Vitals: Last Vital Signs Temp 36.2 C L 01/17/22 08:30 Pulse 76 01/17/22 08:30 Resp 16 01/17/22 08:30 BP 106/49 L 01/17/22 08:30 Pulse Ox 98 01/17/22 08:30 O2 Flow Rate CV Function Including HR & BP: Stable Pain Control: Satisfactory Nausea & Vomiting: Negative Mental Status: Baseline Respiratory Status: Airway Patent Hydration Status: Satisfactory Anesthesia Complications: None
== END 2022-01-17 06:31 | disposition home or self-care (01) ==
LOC: SDS 06:30
PROVIDERS: ATTEND Surgery
DX: R19.5 Other fecal abnormalities (principal); G47.33 Obstructive sleep apnea (adult) (pediatric); E11.42 Type 2 diabetes mellitus with diabetic polyneuropathy; I10 Essential (primary) hypertension; E66.01 Morbid (severe) obesity due to excess calories; Z68.44 Body mass index [BMI] 60.0-69.9, adult; Z79.4 Long term (current) use of insulin; Z79.84 Long term (current) use of oral hypoglycemic drugs; Z80.0 Family history of malignant neoplasm of digestive organs; Z87.891 Personal history of nicotine dependence; Z98.0 Intestinal bypass and anastomosis status; Z98.84 Bariatric surgery status
CPT/HCPCS: 45378; J7120

== ENCOUNTER 2022-12-10 08:00 | Outpatient (CLI) | payer MEDICARE, MEDICAID | END 2022-12-10 23:59 | disposition home or self-care (01) | LOC: LAB.WCP 08:00 | PROVIDERS: ATTEND Physician Assistant Medical | DX: Z79.01 Long term (current) use of anticoagulants (principal); I48.0 Paroxysmal atrial fibrillation ==

== ENCOUNTER 2022-12-24 08:00 | Outpatient (CLI) | payer MEDICARE, MEDICAID | END 2022-12-24 23:59 | disposition home or self-care (01) | LOC: LAB.WCP 08:00 | PROVIDERS: ATTEND Internal Medicine | DX: Z79.01 Long term (current) use of anticoagulants (principal); I48.0 Paroxysmal atrial fibrillation ==

== ENCOUNTER 2023-01-07 08:00 | Outpatient (CLI) | payer MEDICARE, MEDICAID | END 2023-01-07 23:59 | disposition home or self-care (01) | LOC: LAB.WCP 08:00 | PROVIDERS: ATTEND Internal Medicine | DX: Z79.01 Long term (current) use of anticoagulants (principal); I48.0 Paroxysmal atrial fibrillation ==

== ENCOUNTER 2023-02-11 08:00 | Outpatient (CLI) | payer MEDICARE, MEDICAID | END 2023-02-11 08:01 | disposition home or self-care (01) | LOC: LAB.WCP 08:00 | PROVIDERS: ATTEND Internal Medicine | DX: I48.0 Paroxysmal atrial fibrillation (principal); Z79.01 Long term (current) use of anticoagulants ==

== ENCOUNTER 2023-02-11 10:09 | Outpatient (CLI) | payer MEDICARE, MEDICAID ==
[2023-02-11 12:01] LABS: BASOPHILS % (AUTO) 0.4 %; EOSINOPHILS # (AUTO) 0.1 10^3/uL (0.0-0.7); EOSINOPHILS % (AUTO) 1.7 %; HCT - HEMATOCRIT 50.8 % (42.0-52.0); HGB - HEMOGLOBIN 15.7 g/dL (14.0-18.0); LYMPHOCYTES # (AUTO) 2.5 10^3/uL (1.5-3.5); LYMPHOCYTES % (AUTO) 30.6 %; MEAN CORPUSCULAR HEMOGLOBIN 28.2 pg (27.0-31.0); MEAN CORPUSCULAR HGB CONC 30.9 g/dL (32.0-36.0); MEAN CORPUSCULAR VOLUME 91.2 fL (80.0-94.0); MEAN PLATELET VOLUME 10.3 fL (7.4-11.4); MONOCYTES # (AUTO) 0.6 10^3/uL (0.0-1.0); MONOCYTES % (AUTO) 7.6 %; NEUTROPHILS # (AUTO) 4.8 10^3/uL (1.5-6.6); NEUTROPHILS % (AUTO) 59.1 %; PLT - PLATELET COUNT 199 10^3/uL (130-450); RED BLOOD COUNT 5.57 10^6/uL (4.70-6.10); RED CELL DISTRIBUTION WIDTH 14.7 % (12.0-15.0)
[2023-02-11 12:34] LABS: % IRON SATURATION 40 % (20-50); ALBUMIN 4.4 g/dL (3.2-5.5); ALBUMIN/GLOBULIN RATIO 1.6 (1.0-2.2); ALKALINE PHOSPHATASE 80 IU/L (42-121); ALT ALANINE AMINOTRANSFERASE 19 IU/L (10-60); AST ASPARTATE AMINOTRANSFERASE 19 IU/L (10-42); BILIRUBIN,TOTAL 0.6 mg/dL (0.2-1.0); BUN - BLOOD UREA NITROGEN 15 mg/dL (6-20); CALCIUM 9.4 mg/dL (8.5-10.3); CARBON DIOXIDE - CO2 24 mmol/L (21-32); CHLORIDE 104 mmol/L (101-111); CHOL/HDL RATIO 2.1 (<5.0); CHOLESTEROL 150 mg/dL; GFR - MDRD 75 (>89); GLUCOSE 100 mg/dL (74-104); HDL CHOLESTEROL 71 mg/dL; IRON 129 ug/dL (50-212); LDL CHOLESTEROL,CALCULATED 63 mg/dL; LDL/HDL RATIO 0.9 (<3.6); SODIUM 136 mmol/L (135-145); THYROID STIMULATING HORMONE 2.66 uIU/mL (0.34-5.60); TOTAL IRON BINDING CAPACITY 322 ug/dL (250-450); TOTAL PROTEIN 7.2 g/dL (6.4-8.9); TRANSFERRIN 230 mg/dL (203-362); TRIGLYCERIDES 81 mg/dL (48-352); VLDL CHOLESTEROL 16 mg/dL
[2023-02-11 12:51] LABS: ESTIMATED AVERAGE GLUCOSE 126 mg/dL (70-100)
== END 2023-02-11 10:10 | disposition home or self-care (01) ==
LOC: LAB.N 10:09
PROVIDERS: ATTEND Internal Medicine
DX: E11.42 Type 2 diabetes mellitus with diabetic polyneuropathy (principal); Z12.5 Encounter for screening for malignant neoplasm of prostate; F32.A Depression, unspecified; I10 Essential (primary) hypertension; Z98.84 Bariatric surgery status
CPT/HCPCS: 36415; 80053; 80061; 82306; 82607; 82728; 83036; 83540; 84443; 84466; 85025; G0103; 82043; 82570; 83721; 84153

== ENCOUNTER 2023-02-12 08:00 | Outpatient (CLI) | payer MEDICARE, MEDICAID ==
[2023-02-12 18:25] LABS: CREATININE,URINE 66.1 mg/dL; MICROALBUM/CREATININE RATIO,UR 13.6 ug/mg (<30.0); MICROALBUMIN,URINE 0.9 mg/dL
== END 2023-02-12 23:59 | disposition home or self-care (01) ==
LOC: LAB.N 08:00
PROVIDERS: ATTEND Internal Medicine
DX: E11.42 Type 2 diabetes mellitus with diabetic polyneuropathy (principal)
CPT/HCPCS: 82043; 82570

== ENCOUNTER 2023-03-25 08:00 | Outpatient (CLI) | payer MEDICARE, MEDICAID | END 2023-03-25 08:01 | disposition home or self-care (01) | LOC: LAB.WCP 08:00 | PROVIDERS: ATTEND Internal Medicine | DX: I48.0 Paroxysmal atrial fibrillation (principal); Z79.01 Long term (current) use of anticoagulants ==

== ENCOUNTER 2023-04-08 08:00 | Outpatient (CLI) | payer MEDICARE, MEDICAID | END 2023-04-08 08:01 | disposition home or self-care (01) | LOC: LAB.N 08:00 | PROVIDERS: ATTEND Internal Medicine | DX: I48.0 Paroxysmal atrial fibrillation (principal); Z79.01 Long term (current) use of anticoagulants ==

== ENCOUNTER 2023-05-06 10:00 | Outpatient (CLI) | payer MEDICARE, MEDICAID ==
[2023-05-06 12:35] LABS: ALBUMIN/GLOBULIN RATIO 1.5 (1.0-2.2); BILIRUBIN,TOTAL 0.7 mg/dL (0.2-1.0); CALCIUM 9.2 mg/dL (8.5-10.3); POTASSIUM 5.1 mmol/L (3.5-4.5); TOTAL PROTEIN 6.7 g/dL (6.4-8.9)
[2023-05-06 12:41] LABS: INR 2.9 (0.8-1.2); PT - PROTHROMBIN TIME 30.6 secs (9.9-12.6)
[2023-05-06 20:48] LABS: ESTIMATED AVERAGE GLUCOSE 140 mg/dL (70-100); HEMOGLOBIN A1c% 6.5 % (4.27-6.07)
== END 2023-05-06 10:01 | disposition home or self-care (01) ==
LOC: LAB.N 10:00
PROVIDERS: ATTEND Internal Medicine
DX: E11.42 Type 2 diabetes mellitus with diabetic polyneuropathy (principal); I48.91 Unspecified atrial fibrillation; Z79.01 Long term (current) use of anticoagulants
CPT/HCPCS: 36415; 80053; 83036; 85610

== ENCOUNTER 2023-06-24 08:00 | Outpatient (CLI) | payer MEDICARE, MEDICAID | END 2023-06-24 08:01 | disposition home or self-care (01) | LOC: LAB.WCP 08:00 | PROVIDERS: ATTEND Internal Medicine | DX: I48.0 Paroxysmal atrial fibrillation (principal); Z79.01 Long term (current) use of anticoagulants ==

== ENCOUNTER 2023-07-08 08:00 | Outpatient (CLI) | payer MEDICARE, MEDICAID | END 2023-07-08 08:01 | disposition home or self-care (01) | LOC: LAB.N 08:00 | PROVIDERS: ATTEND Internal Medicine | DX: I48.0 Paroxysmal atrial fibrillation (principal); Z79.01 Long term (current) use of anticoagulants ==

== ENCOUNTER 2023-07-29 08:00 | Outpatient (CLI) | payer MEDICARE, MEDICAID | END 2023-07-29 08:01 | disposition home or self-care (01) | LOC: LAB.WCP 08:00 | PROVIDERS: ATTEND Internal Medicine | DX: I48.0 Paroxysmal atrial fibrillation (principal); Z79.01 Long term (current) use of anticoagulants ==

== ENCOUNTER 2023-08-26 08:00 | Outpatient (CLI) | payer MEDICARE, MEDICAID | END 2023-08-26 23:59 | disposition home or self-care (01) | LOC: LAB.WCP 08:00 | PROVIDERS: ATTEND Internal Medicine | DX: I48.0 Paroxysmal atrial fibrillation (principal); Z79.01 Long term (current) use of anticoagulants ==

== ENCOUNTER 2023-09-09 10:21 | Outpatient (CLI) | payer MEDICARE, MEDICAID ==
[2023-09-09 18:04] LABS: CALCIUM 9.5 mg/dL (8.5-10.3); POTASSIUM 4.9 mmol/L (3.5-4.5)
[2023-09-09 18:16] LABS: PT - PROTHROMBIN TIME 21.5 secs (9.9-12.6)
[2023-09-09 22:53] LABS: ESTIMATED AVERAGE GLUCOSE 131 mg/dL (70-100); HEMOGLOBIN A1c% 6.2 % (4.27-6.07)
== END 2023-09-09 10:22 | disposition home or self-care (01) ==
LOC: LAB.N 10:21
PROVIDERS: ATTEND Internal Medicine
DX: I48.0 Paroxysmal atrial fibrillation (principal); Z79.01 Long term (current) use of anticoagulants; E11.42 Type 2 diabetes mellitus with diabetic polyneuropathy
CPT/HCPCS: 36415; 80048; 83036; 85610

== ENCOUNTER 2023-10-28 08:00 | Outpatient (CLI) | payer MEDICARE, MEDICAID | END 2023-10-28 23:59 | disposition home or self-care (01) | LOC: LAB.WCP 08:00 | PROVIDERS: ATTEND Internal Medicine | DX: I48.0 Paroxysmal atrial fibrillation (principal); Z79.01 Long term (current) use of anticoagulants ==